=== PATIENT | male | born 1995 | race Caucasian/White ===

== ENCOUNTER 2017-02-25 11:15 | Emergency (ER) | payer BC ==
[~2017-02-25] VITALS: Ht 188 cm; Wt 117.9 kg
[2017-02-25] MEDS: PIPERACILLIN SODIUM/TAZOBACTAM 3.375 G in IV DEXTROSE 5% 50 ML IV ONE (12:55)
--- NOTE | 2017-02-25 13:00 | NUR ---
iv placed zosyn infusing, [place] [id number] pt [address] a seizure dr centeno notified, presently pt a/o x 4, monitor shows sinus harriett at 51bpm. pt in route to ct.
[2017-02-25 13:02] LABS: CARBON DIOXIDE 25 mmol/L (21-32); CHLORIDE 107 mmol/L (98-107); CREATININE 0.7 mg/dL (0.6-1.3); GLUCOSE 92 mg/dL (74-106); UREA NITROGEN, BLOOD 10 mg/dL (7-18)
[2017-02-25 13:05] LABS: BASOPHILS # (AUTO) 0.1 K/uL (0.0-8.0); BASOPHILS % (AUTO) 0.5 % (0.0-2.0); EOSINOPHILS # (AUTO) 0.2 K/uL (0.0-0.7); EOSINOPHILS % (AUTO) 1.6 % (0.0-7.0); HEMATOCRIT 47.3 % (36.7-47.1); HEMOGLOBIN 16.7 g/dL (12.5-16.3); LYMPHOCYTES # (AUTO) 3.7 K/uL (20.0-40.0); LYMPHOCYTES % (AUTO) 35.4 % (20.5-51.5); MEAN CORPUSCULAR HEMOGLOBIN 31.5 uug (23.8-33.4); MEAN CORPUSCULAR HGB CONC 35 g/dL (32.5-36.3); MEAN CORPUSCULAR VOLUME 89.6 fL (73.0-96.2); MONOCYTES # (AUTO) 0.9 K/uL (2.0-10.0); MONOCYTES % (AUTO) 8.5 % (0.0-11.0); NEUTROPHILS # (AUTO) 5.7 K/uL (1.8-8.9); PLATELET COUNT (AUTO) 172 K/uL (152-348); RED BLOOD CELL COUNT(AUTO) 5.28 MIL/uL (4.06-5.63); WHITE BLOOD COUNT (AUTO) 10.6 K/uL (3.6-10.2)
[2017-02-25 13:07] LABS: ALANINE AMINOTRANSFERASE 27 U/L (16-63); ALKALINE PHOSPHATASE 116 U/L (50-136); ASPARTATE AMINOTRANSFERASE 13 U/L (15-37); BILIRUBIN,DIRECT 0.1 mg/dL (0.0-0.2); BILIRUBIN,TOTAL 0.6 mg/dL (0.2-1.0); TOTAL PROTEIN, SERUM 7.2 g/dL (6.4-8.2)
[2017-02-25] MEDS ORDERED: PIPERACILLIN/TAZOBACTAM/D5W 50 ML IV ONE (13:08)
[2017-02-25] MEDS: CEFTRIAXONE 2 G in IV DEXTROSE 5% 100 ML IV ONE (13:28)
[2017-02-25] MEDS: DEXAMETHASONE SOD PHOSPHATE 4 MG INJ IV ONE (13:28)
[2017-02-25] MEDS ORDERED: VANCOMYCIN IV 200 ML ONE (13:37)
[2017-02-25] MEDS ORDERED: DEXAMETHASONE SOD PHOSPHATE 4 MG INJ ONE ×2 (13:37→13:58)
[2017-02-25] MEDS ORDERED: CEFTRIAXONE 1 G VIAL ONE (13:37)
[2017-02-25] MEDS: VANCOMYCIN IV 1,000 MG in IV DEXTROSE 5% 250 ML IV ONE (14:30)
--- NOTE | 2017-02-25 14:43 | NUR ---
CALL PLACED TO DR. YOSEF LLANOS ( OPHTHALMOLOGY ), .
--- NOTE | 2017-02-25 14:50 | NUR ---
DR WEST SPOKE TO DR LOPEZ, DR WEST WANTS AN OPTYHALMALOGIST TO BE CONRTACTED REGARDING A CONSULT.
--- NOTE | 2017-02-25 14:51 | NUR ---
DR. LOPEZ SPOKE WITH DR. TI AGUILAR (PT'S PMD, ) VIA TELEPHONE.
--- NOTE | 2017-02-25 15:10 | NUR ---
CALLED [facility] [place] SPOKE TO MARAH AND FAXED THE FACE SHEET AND A SUMMURY REPORT.
--- NOTE | 2017-02-25 15:39 | NUR ---
DR LOPEZ STATED HE SPOKE TO DEVI FROM THE TRANSFER CENTER CALLED TO INFORM US THAT THEY WERE TO CALL THE NEUROLOGIST FIRST BEFORE ACCEPTING THE TRANFER.
--- NOTE | 2017-02-25 17:10 | NUR ---
MARAH FROM [facility] TRANSFER [place] CALLED TO INFORM US THAT DR ALEJANDRA BOWENS REFUSED THE TRANSFER DUE TO THE FACT THAT THE ER TO BUSY AND FULL AND NO BEDS AVAILABLE. DR LOPEZ WAS NOTIFIED, AND PT AND HIS FAMILY WAS NOTIFIED.
--- NOTE | 2017-02-25 18:18 | NUR ---
called [facility] and spoke to moose from the transfer center whom asked mme to fax face sheet and summary report which i did.
--- NOTE | 2017-02-25 19:06 | NUR ---
sdbar report to keagan galo
--- NOTE | 2017-02-25 19:32 | NUR ---
Call placed to [facility] for transfer information. However, while speaking with transfer center the patient's family informed staff that he would rather leave Against Medical Advice and go to [facility]'s ER waiting room. T[facility] notified.
[2017-02-25] MEDS ORDERED: MEROPENEM 1 G VIAL IV ONE (19:35)
--- NOTE | 2017-02-25 19:55 | NUR ---
Patient does not wish to proceed with medical care recommended by Dr. Block. Patient given information related to possible complications, up to and including , which could occur as a result of leaving the hospital at this time. Patient verbalizes understanding of risks involved due to leaving against medical advice. Patient has signed AMA form.
== END 2017-02-25 19:55 | disposition left against medical advice (07) ==
LOC: ER 11:21
DX: H05.012 Cellulitis of left orbit (principal); R56.9 Unspecified convulsions; R93.0 Abnormal findings on diagnostic imaging of skull and head, not elsewhere classified; Z98.84 Bariatric surgery status; F17.200 Nicotine dependence, unspecified, uncomplicated
CPT/HCPCS: 36415; 70450; 70480; 80048; 80076; 83605; 84484; 85025; 85730; 87040 ×2; 96365; 96366; 96367; 96368; 96375; 99291; A4663; J0696; J1100; J2543; J3370; J3490; J7060; 70030-TC; J2185